=== PATIENT | male | born 1990 | race Caucasian/White ===

== ENCOUNTER 2023-08-31 20:13 | Emergency (ER) | payer OTHER ==
[2023-08-31 20:21] VITALS: BP 131/79; PULSE 76; RESP 18; TEMP 98.5; BMI 32.3
[2023-08-31 22:08] LABS: BASO % 2.4 % (0-2.0); EOS % 5.5 % (0-4.5); HEMATOCRIT 43.1 % (35.4-49); HEMOGLOBIN 14.5 GM/dL (11.7-16.9); MCH 27.6 pg (25.7-33.7); MCHC 33.6 g/dl (32.0-35.9); MEAN CELL VOLUME 82.2 fl (80-96); MEAN PLT VOLUME 8.1 fl (7.5-11.1); MONO % 7.1 % (3.8-10.2); PLATELET COUNT 379 10^3/uL (134-434); RBC 5.24 M/mm3 (4.00-5.60); RDW 13.3 % (11.9-15.9); WHITE BLOOD COUNT 13.5 K/mm3 (4.0-10.0)
[2023-08-31 22:36] LABS: CALCIUM 8.9 mg/dL (8.5-10.1); POTASSIUM 4.1 mmol/L (3.5-5.1)
[2023-08-31 22:38] LABS: BLOOD UREA NITROGEN 20.7 mg/dL (7-18)
[2023-08-31 22:41] LABS: CREATININE 0.7 mg/dL (0.55-1.3)
[2023-08-31] MEDS ORDERED: SODIUM CHLORIDE 0.9% 500 ML INFUS.BAG IV ONE (22:43)
[2023-09-01] MEDS ORDERED: DOXYCYCLINE HYCLATE 100 MG CAPSULE PO ONE ×2 (01:43→01:52)
[2023-09-01] MEDS ORDERED: KETOROLAC TROMETHAMINE 15 MG/ML VIAL IVPUSH ONE (01:44)
[2023-09-01] MEDS ORDERED: KETOROLAC TROMETHAMINE 15 MG/ML VIAL ONE (01:51)
== END 2023-09-01 01:55 | disposition home or self-care (01) ==
LOC: JERFT 20:13
PROC: 3E0333Z Introduction of Anti-inflammatory into Peripheral Vein, Percutaneous Approach (ICD-10-PCS; principal; 2023-09-01)
DX: L02.31 Cutaneous abscess of buttock (principal)
CPT/HCPCS: 36415; 72193-TC; 80048; 85025; 86850; 86900; 86901; 96374; 99285-25; Q9967

== ENCOUNTER 2024-09-04 12:32 | Emergency (ER) | payer OTHER ==
[2024-09-04 12:37] VITALS: BP 126/73; PULSE 87; RESP 18; TEMP 98.4; BMI 32.3
[2024-09-04] MEDS ORDERED: ACETAMINOPHEN 500 MG TABLET (FP) ONE (13:55)
[2024-09-04] MEDS ORDERED: IBUPROFEN 400 MG TABLET (FP) PO ONE (13:55)
[2024-09-04] MEDS ORDERED: METHOCARBAMOL 500 MG TABLET ONE (13:55)
[2024-09-04] MEDS: ACETAMINOPHEN 500 MG TABLET (FP) PO ONE (13:58)
[2024-09-04] MEDS: METHOCARBAMOL 500 MG TABLET PO ONE (13:58)
[2024-09-04] MEDS: IBUPROFEN 400 MG TABLET (FP) PO ONE (13:58)
== END 2024-09-04 15:58 | disposition home or self-care (01) ==
LOC: JER 12:32 → JERFT 12:32
DX: M54.2 Cervicalgia (principal); R51.9 Headache, unspecified; W20.8XXA Other cause of strike by thrown, projected or falling object, initial encounter; Y99.0 Civilian activity done for income or pay
CPT/HCPCS: 72040-TC; 99283-25